=== PATIENT | female | born 1945 | race Caucasian/White ===

== ENCOUNTER 2024-11-09 04:54 | Observation (INO) ==
[2024-11-09] MEDS ORDERED: IOPAMIDOL 100 ML BOTTLE IV ONE (04:55)
[2024-11-09 05:44] LABS: Basophils # (Auto) 0.04 K/mcL (0.00-0.30); Basophils % (Auto) 0.8 % (0.0-2.0); Eosinophils # (Auto) 0.26 K/mcL (0.00-0.70); Eosinophils % (Auto) 5.4 % (0.0-7.0); Hematocrit 34.8 % (34.1-44.9); Hemoglobin 11.6 g/dL (11.2-15.7); Lymphocytes # (Auto) 1.92 K/mcL (1.50-4.80); Mean Cell Volume 95.9 fL (80.0-100.0); Mean Corpuscular HGB Conc 33.3 g/dL (31.0-36.0); Mean Platelet Volume 10.1 fL (8.8-12.5); Monocytes # (Auto) 0.44 K/mcL (0.10-0.90); Monocytes % (Auto) 9.2 % (1.0-12.0); Neutrophils % (Auto) 44.2 % (38.0-78.0); Platelet Count 154 K/mcL (140-440); RBC 3.63 M/mcL (3.59-5.38); Red Cell Distribution Width 12.5 % (11.5-14.5); WBC 4.8 K/mcL (4.5-11.0)
[2024-11-09] MEDS: ACETAMINOPHEN 1,000 MG/100 ML BAG IV ONE (05:47)
[2024-11-09] MEDS: 0.9 % SODIUM CHLORIDE 1,000 ML IV ONE (05:47)
[2024-11-09 05:59] LABS: ALT/SGPT 16 U/L (<40); AST/SGOT 13 U/L (<32); Albumin 3.8 gm/dL (3.2-5.2); Albumin/Globulin Ratio 1.7 (1.0-2.3); Alkaline Phosphatase 42 U/L (39-117); Bilirubin,Total 0.3 mg/dL (0.1-1.0); Blood Urea Nitrogen 26 mg/dL (8-23); Calcium 8.9 mg/dL (8.6-10.4); Carbon Dioxide 27 mmol/L (22-30); Chloride 107 mmol/L (96-108); Globulin 2.2 gm/dL (2.2-3.7); Glomerular Filtration Rate 62; Glucose 91 mg/dL (70-105); Potassium 3.9 mmol/L (3.3-5.1); Sodium 145 mmol/L (133-145)
[2024-11-09 06:03] LABS: Appearance,Urine Clear (Clear); Bilirubin,Urine Negative (Negative); Color,Urine Yellow; Glucose,Urine (UA) Negative (Negative); Ketones,Urine Negative (Negative); Leukocyte Esterase,Urine Negative /uL (Negative); Nitrate,Urine Negative (Negative); PH,Urine 7.5 (5.0-9.0); Protein,Urine Negative (Negative); Specific Gravity,Urine 1.015 (1.000-1.035); Urine Blood Negative ery/mcL (Negative); Urobilinogen,Urine Normal
[2024-11-09] MEDS ORDERED: morphine 2 MG/ML VIAL IV PRN (06:50)
[2024-11-09] MEDS: 0.9 % SODIUM CHLORIDE 1,000 ML IV SCH (07:31)
[2024-11-09] MEDS: PIPERACILLIN SODIUM/TAZOBACTAM 3.375 GM in DEXTROSE 5% IN WATER 50 ML IV SCH (13:32)
[2024-11-09] MEDS ORDERED: PROPOFOL 200 MG/20 ML VIAL IV ONE (14:27)
[2024-11-09] MEDS ORDERED: fentaNYL 100 MCG/2 ML VIAL ONE (14:58)
[2024-11-09] MEDS ORDERED: GLYCOPYRROLATE 0.2 MG/ML VIAL IV ONE (15:13)
[2024-11-09] MEDS ORDERED: ePHEDrine 50 MG/5 ML SYRINGE (ANEST) IV ONE (15:15)
[2024-11-09] MEDS ORDERED: PHENYLephrine 1 MG/10 ML SYRINGE (ANEST) ONE (15:19)
[2024-11-09] MEDS ORDERED: SUGAMMADEX SODIUM 200 MG/2 ML VIAL IV ONE (15:36)
[2024-11-09] MEDS ORDERED: IPRATROPIUM/ALBUTEROL 3 ML AMPUL.NEB NEB PRN (15:46)
[2024-11-09] MEDS ORDERED: HYDROmorphone 0.5 MG/0.5 ML SYRINGE IV PRN (15:46)
[2024-11-09] MEDS ORDERED: fentaNYL 100 MCG/2 ML VIAL IV PRN (15:46)
[2024-11-09] MEDS ORDERED: KETOROLAC 30 MG/ML VIAL ONE (15:53)
[2024-11-09] MEDS: METHOCARBAMOL 1,000 MG/10 ML VIAL IV ONE (16:17)
[2024-11-09] MEDS ORDERED: ALBUTEROL SULFATE 60 PUFF INHALER INH PRN (16:40)
[2024-11-09] MEDS: PIPERACILLIN SODIUM/TAZOBACTAM 3.375 GM in DEXTROSE 5% IN WATER 100 ML IV SCH (17:17)
[2024-11-09] MEDS: ACETAMINOPHEN 650 MG/65 ML BAG IV PRN (21:58)
[2024-11-09] MEDS: ONDANSETRON 4 MG/2 ML VIAL IV PRN (22:05)
[2024-11-10 06:12] LABS: Basophils # (Auto) 0.04 K/mcL (0.00-0.30); Basophils % (Auto) 0.8 % (0.0-2.0); Eosinophils # (Auto) 0.29 K/mcL (0.00-0.70); Eosinophils % (Auto) 5.6 % (0.0-7.0); Hematocrit 32.4 % (34.1-44.9); Hemoglobin 10.4 g/dL (11.2-15.7); Lymphocytes # (Auto) 1.26 K/mcL (1.50-4.80); Lymphocytes % (Auto) 24.3 % (15.5-49.0); Mean Cell Volume 96.7 fL (80.0-100.0); Mean Corpuscular HGB Conc 32.1 g/dL (31.0-36.0); Mean Platelet Volume 9.8 fL (8.8-12.5); Monocytes # (Auto) 0.38 K/mcL (0.10-0.90); Monocytes % (Auto) 7.3 % (1.0-12.0); Neutrophils % (Auto) 61.6 % (38.0-78.0); Platelet Count 145 K/mcL (140-440); RBC 3.35 M/mcL (3.59-5.38); Red Cell Distribution Width 12.4 % (11.5-14.5); WBC 5.2 K/mcL (4.5-11.0)
[2024-11-10 06:18] LABS: ALT/SGPT 12 U/L (<40); AST/SGOT 11 U/L (<32); Albumin 3.3 gm/dL (3.2-5.2); Albumin/Globulin Ratio 1.8 (1.0-2.3); Alkaline Phosphatase 37 U/L (39-117); Bilirubin,Direct < 0.2 mg/dL (0-0.3); Bilirubin,Total 0.4 mg/dL (0.1-1.0); Blood Urea Nitrogen 11 mg/dL (8-23); Calcium 8.8 mg/dL (8.6-10.4); Carbon Dioxide 26 mmol/L (22-30); Chloride 107 mmol/L (96-108); Globulin 1.8 gm/dL (2.2-3.7); Glomerular Filtration Rate 62; Glucose 96 mg/dL (70-105); Lactate Dehydrogenase 134 U/L (135-225); Phosphorous 3.4 mg/dL (2.5-4.5); Sodium 140 mmol/L (133-145); Triglycerides 115 mg/dL (<150); Uric Acid 2.2 mg/dL (2.5-8.0)
[2024-11-10] MEDS: KETOCONAZOLE 2% TOP CRM 15GM TUBE TOPICAL SCH (17:57)
[2024-11-10] MEDS: FAMOTIDINE 20 MG TABLET PO PRN (21:48)
[2024-11-11 06:03] LABS: Basophils # (Auto) 0.03 K/mcL (0.00-0.30); Basophils % (Auto) 0.6 % (0.0-2.0); Eosinophils # (Auto) 0.27 K/mcL (0.00-0.70); Eosinophils % (Auto) 5.5 % (0.0-7.0); Hematocrit 34.2 % (34.1-44.9); Hemoglobin 11.2 g/dL (11.2-15.7); Lymphocytes # (Auto) 1.54 K/mcL (1.50-4.80); Lymphocytes % (Auto) 31.3 % (15.5-49.0); Mean Cell Volume 95.3 fL (80.0-100.0); Mean Corpuscular HGB Conc 32.7 g/dL (31.0-36.0); Monocytes # (Auto) 0.38 K/mcL (0.10-0.90); Monocytes % (Auto) 7.7 % (1.0-12.0); Neutrophils % (Auto) 54.5 % (38.0-78.0); Platelet Count 147 K/mcL (140-440); RBC 3.59 M/mcL (3.59-5.38); Red Cell Distribution Width 12.4 % (11.5-14.5); WBC 4.9 K/mcL (4.5-11.0)
[2024-11-11 11:16] VITALS: TEMP 97.8; O2SAT 98
== END 2024-11-11 14:45 | disposition home or self-care (01) ==
LOC: ED 04:54 → MEDSUR 04:54
PROVIDERS: ADMIT Family Medicine Adult Medicine; ATTEND Family Medicine Adult Medicine
PROC: LAPAPPY (ICD-10-PCS; 2024-11-09 14:56)